=== PATIENT | female | born 1960 ===

== ENCOUNTER 2024-03-19 06:00 | Outpatient (RCR) | payer MEDICARE, SELFPAY | END 2024-04-14 23:59 | disposition home or self-care (01) | LOC: GPT 06:00 | PROVIDERS: Visit Provider Nurse Practitioner | DX: M25.561 Pain in right knee (principal) | CPT/HCPCS: 97110; 97112; 97162; 97530 ==

== ENCOUNTER 2024-04-15 06:00 | Outpatient (RCR) | payer MEDICARE, SELFPAY | END 2024-05-15 23:59 | disposition home or self-care (01) | LOC: GPT 06:00 | PROVIDERS: Visit Provider Nurse Practitioner | DX: M25.561 Pain in right knee (principal); M25.562 Pain in left knee | CPT/HCPCS: 97110; 97140; 97164; 97530 ==

== ENCOUNTER 2024-07-14 06:30 | Outpatient (RCR) | payer OTHER, SELFPAY | END 2024-08-13 23:59 | disposition home or self-care (01) | LOC: GPT 06:30 | PROVIDERS: Visit Provider Nurse Practitioner Family | DX: M54.59 Other low back pain (principal); M25.561 Pain in right knee; M25.562 Pain in left knee; M25.661 Stiffness of right knee, not elsewhere classified; M25.662 Stiffness of left knee, not elsewhere classified | CPT/HCPCS: 97163 ==

== ENCOUNTER 2024-08-14 05:00 | Outpatient (RCR) | payer OTHER, SELFPAY | END 2024-09-12 23:59 | disposition home or self-care (01) | LOC: GPT 05:00 | PROVIDERS: Visit Provider Nurse Practitioner Family | DX: M13.0 Polyarthritis, unspecified (principal); M54.2 Cervicalgia; M54.16 Radiculopathy, lumbar region; M25.562 Pain in left knee; M25.561 Pain in right knee | CPT/HCPCS: 97110; 97112 ==

== ENCOUNTER 2024-09-13 06:30 | Outpatient (RCR) | payer OTHER, SELFPAY | END 2024-10-03 08:39 | disposition home or self-care (01) | LOC: GPT 06:30 | PROVIDERS: Visit Provider Nurse Practitioner Family | DX: R03.0 Elevated blood-pressure reading, without diagnosis of hypertension (principal); M13.0 Polyarthritis, unspecified; M54.2 Cervicalgia; M54.16 Radiculopathy, lumbar region; M25.562 Pain in left knee; M25.561 Pain in right knee | CPT/HCPCS: 97110; 97112; 97164 ==